=== PATIENT | male | born 1980 | race Caucasian/White ===

== ENCOUNTER 2024-08-10 10:28 | Emergency (ER) | payer MEDICARE, MEDICAID ==
[~2024-08-10] VITALS: Ht 185.4 cm; Wt 99.5 kg
[2024-08-10 15:00] LABS: BASO % 0.5 % (0.0-1.0); EOS # 0.4 10^3/uL (0.0-0.5); EOS % 6.2 % (0.0-3.0); HEMATOCRIT 45.1 % (42.0-52.0); HEMOGLOBIN 15.5 g/dl (13.5-17.5); MEAN CORPUSCULAR HEMOGLOBIN 30.8 pg (27.0-33.0); MEAN CORPUSCULAR HGB CONC 34.4 g/dl (32.0-36.5); MEAN CORPUSCULAR VOLUME 89.5 fl (80.0-96.0); MONO # 0.8 10^3/uL (0.0-0.8); MONO % 12.3 % (2.0-8.0); NEUTROPHILS # 4.2 10^3/uL (1.5-8.5); NEUTROPHILS % 64.7 % (36.0-66.0); PLATELET COUNT, AUTOMATED 190 10^3/uL (150-450); RED BLOOD COUNT 5.04 10^6/uL (4.30-6.10); WHITE BLOOD COUNT 6.5 10^3/uL (4.0-10.0)
[2024-08-10 15:05] VITALS: TEMP 97.7
[2024-08-10 15:22] LABS: ALBUMIN 3.5 G/DL (3.2-5.2); BILIRUBIN,DIRECT 0.2 MG/DL (<0.4); BILIRUBIN,TOTAL 0.6 MG/DL (0.3-1.2); TOTAL PROTEIN 7.2 G/DL (5.7-8.2)
[2024-08-10] MEDS ORDERED: ISOVUE-370 76% 100ML VIAL As Ordered ONE (15:31)
[2024-08-10 16:15] VITALS: BP 148/69; O2SAT 94
[2024-08-10] MEDS ORDERED: PRED20TA PO (16:33)
== END 2024-08-10 16:51 | disposition home or self-care (01) ==
LOC: M ED 10:28
DX: D86.0 Sarcoidosis of lung (principal); R91.8 Other nonspecific abnormal finding of lung field; Z88.8 Allergy status to other drugs, medicaments and biological substances
CPT/HCPCS: 71045; 71260; 80047; 80076; 85025; 87486; 87581; 87633; 87798; 93005; 94760; 99284; Q9967